=== PATIENT | female | born 1960 | race Caucasian/White ===

== ENCOUNTER 2016-11-22 15:42 | Emergency (ER) | payer OTHER ==
[~2016-11-22] VITALS: Ht 172.7 cm; Wt 65.8 kg
[~2016-11-22 15:42] MED LIST: AMOXICILLIN250 MG PO; AMOXICILLIN500 MG PO; ASPIRIN E.C.325 MG PO; ASPIRIN LOW DOS81 MG PO; ATIVAN1 MG PO; BENADRYL25 M1 PO; CIPRO500 MG PO; CLARITIN10 MG PO; CLINDAMYCIN HC300 MG PO; COLACE100 MG PO; Carafate1 GM PO; DIFLUCAN150 MG PO; DIPHENHYDRAMINE25 MG PO; DULCOLAX10 MG R; DULCOLAX10 MG RC; FLAGYL250 MG PO; FLAGYL500 MG PO; KEFLEX500 MG PO; LANSOPRAZOLE30 M1 PO; LIPITOR20 MG PO; MIRALAX POWDER17 G1 PO; MIRALAX17 GM/PACK PO; MOTRIN800 MG PO; NEXIUM40 MG PO; Peridex 473 ML473 ML PO; SENNA PLUS 50 M1 TA1 PO; TOBRADEX 0.1%-0.5 ML OPH; TRAMADOL HCL50 MG PO; TYLENOL325 M1 PO; TYLENOL500 MG PO; VIBRAMYCIN100 MG PO; VICODIN 5/500 505 MG PO; VOLTAREN25 MG PO; ZOCOR20 MG PO; ZOFRAN ODT4 MG SL; ZYRTEC10 MG PO
[2016-11-22] MEDS ORDERED: HYDROCODONE BIT1 T11 PO (18:38)
[2016-12-18] MEDS ORDERED: AMOXICILLIN250 MG PO (12:14)
[2016-12-18] MEDS ORDERED: CLINDAMYCIN HC300 MG PO (12:14)
[2016-12-18] MEDS ORDERED: PERIDEX118 ML MM (12:14)
[2016-12-18] MEDS ORDERED: DIFLUCAN150 MG PO (12:17)
== END 2016-11-22 18:44 | disposition home or self-care (01) ==
LOC: ED 15:42
DX: S22.31XA Fracture of one rib, right side, initial encounter for closed fracture (principal); S22.9XXA Fracture of bony thorax, part unspecified, initial encounter for closed fracture; Z88.0 Allergy status to penicillin; Z88.1 Allergy status to other antibiotic agents; Z88.8 Allergy status to other drugs, medicaments and biological substances; Z79.899 Other long term (current) drug therapy; Z79.82 Long term (current) use of aspirin; X58.XXXA Exposure to other specified factors, initial encounter; Y93.9 Activity, unspecified; Y92.9 Unspecified place or not applicable; Y99.9 Unspecified external cause status

== ENCOUNTER 2018-05-05 13:00 | Emergency (ER) | payer OTHER ==
[~2018-05-05] VITALS: Ht 172.7 cm; Wt 63.5 kg
[~2018-05-05 13:00] MED LIST changes: +HYDROCODONE BIT1 T11 PO; +PERIDEX118 ML MM
[2018-05-05] MEDS ORDERED: AMOXICILLIN500 M2 PO (13:38)
== END 2018-05-05 14:12 | disposition home or self-care (01) ==
LOC: ED 13:00
DX: J01.90 Acute sinusitis, unspecified (principal); Z88.6 Allergy status to analgesic agent; Z88.8 Allergy status to other drugs, medicaments and biological substances; Z88.1 Allergy status to other antibiotic agents; Z88.0 Allergy status to penicillin; Z79.899 Other long term (current) drug therapy; Z79.82 Long term (current) use of aspirin

== ENCOUNTER 2018-06-11 15:20 | Emergency (ER) | payer OTHER ==
[~2018-06-11 15:20] MED LIST changes: +AMOXICILLIN500 M2 PO
== END 2018-06-11 16:58 | disposition home or self-care (01) ==
LOC: ED 15:20
DX: S29.9XXA Unspecified injury of thorax, initial encounter (principal); Z88.5 Allergy status to narcotic agent; Z88.0 Allergy status to penicillin; Z88.2 Allergy status to sulfonamides; Z88.8 Allergy status to other drugs, medicaments and biological substances; Z88.1 Allergy status to other antibiotic agents; Z91.011 Allergy to milk products; Z79.899 Other long term (current) drug therapy; Z79.82 Long term (current) use of aspirin; X50.1XXA Overexertion from prolonged static or awkward postures, initial encounter; Y93.F9 Activity, other caregiving; Y92.89 Other specified places as the place of occurrence of the external cause; Y99.8 Other external cause status

== ENCOUNTER 2018-11-04 | Emergency (ER) | payer OTHER ==
[2018-11-04] MEDS ORDERED: AMOXICILLIN250 MG PO (13:54)
== END 2018-11-04 14:02 | disposition home or self-care (01) ==
DX: K04.7 Periapical abscess without sinus (principal); K02.9 Dental caries, unspecified; Z88.2 Allergy status to sulfonamides; Z88.0 Allergy status to penicillin; Z88.1 Allergy status to other antibiotic agents; Z88.6 Allergy status to analgesic agent; Z88.8 Allergy status to other drugs, medicaments and biological substances; Z79.899 Other long term (current) drug therapy; Z79.82 Long term (current) use of aspirin

== ENCOUNTER 2019-02-20 16:16 | Emergency (ER) | payer OTHER ==
[~2019-02-20] VITALS: Ht 172.7 cm; Wt 70.3 kg
--- NOTE | ~2019-02-20 | EKG ---
[place], [place] ELECTROCARDIOGRAM REPORT NAME: ROM KIMBLE UNIT #: [id number] ROOM: DOCTOR: EPIPHANY DRAFT REPORT BIRTHDATE: [birth year] [facility] Test Date: 2019-02-20 Test Time: 16:28:00 Pat Name: ROM IKMBLE Department: Room: Gender: F [employer] Worker: : 1960 Requested By: CRISTINA MCGOWAN DNP Order Number: [id number] Reading MD: Marquita Gordon MD Measurements Intervals Downing Rate: 75 P: 28 OR: 147 QRS: 1 QRSD: 84 T: 62 QT: 405 QTc: 453 Interpretive Statements Sinus rhythm Low voltage, precordial leads Abnormal R-wave progression, early transition Compared to ECG 02/13/2019 14:39:31 No significant changes Electronically Signed On 02-21-2019 12:33:51 PDT by Marquita Gordon MD CM:EKGRPT:ELECTROCARDIOGRAM REPORT [id number] CRISTINA MCGOWAN DNP EPIPHANY DRAFT REPORT CRISTINA MCGOWAN DNP
[2019-02-20 16:41] LABS: BASO % 0.3 % (0.0-1.0); EOS # 0.1 10*3/uL (0.0-0.4); EOS % 1.9 % (1.0-4.0); HEMOGLOBIN 11.5 g/dl (12.0-16.0); LYMPH # 2.5 10*3/uL (1.3-4.4); MEAN CELL VOLUME 87.8 fl (81.0-99.0); MEAN CORPUSCULAR HGB CONC 31.9 g/dl (33.0-37.0); MEAN PLATELET VOLUME 8.9 fl (9.6-12.3); MONO # 0.7 10*3/uL (0.1-1.0); MONO % 9.6 % (3.0-9.0); NEUT % 53.9 % (47.0-73.0); PLATELET COUNT AUTOMATED 417 10*3/uL (130-400); RED CELL DISTRI WIDTH 13.6 % (0-14.5); WHITE BLOOD COUNT 7.5 10*3/uL (4.8-10.8)
[2019-02-20 16:53] LABS: ACT PARTIAL THROMBO TIME 25.9 SECONDS (20.8-31.5)
[2019-02-20 16:57] LABS: ALBUMIN 3.8 gm/dl (3.1-4.5); ALKALINE PHOSPHATASE 125 U/L (45-117); BUN 6 mg/dl (7-24); CHLORIDE 106 mmol/L (98-107); CREATININE 0.56 mg/dL (0.55-1.02); POTASSIUM 3.9 mmol/L (3.5-5.1); SGOT/AST 14 IU/L (3-35); SGPT/ALT 20 U/L (12-78); SODIUM 138 mmol/L (136-145)
[2019-02-20 16:59] LABS: TROPONIN I < 0.015 ng/ml (<0.045)
[2019-02-20 17:15] LABS: BILIRUBIN NEGATIVE (NEGATIVE); BLOOD NEGATIVE (NEGATIVE); CLARITY CLEAR (CLEAR); COLOR YELLOW (YELLOW); GLUCOSE NEGATIVE (NEGATIVE); KETONE NEGATIVE (NEGATIVE); LEUKO ESTERASE NEGATIVE (NEGATIVE); NITRITE NEGATIVE (NEGATIVE); PH 5.5 (5.0-9.0); SPECIFIC GRAVITY <= 1.005 (1.005-1.030); UROBILINOGEN 0.2 E.U./dl (0.2-1.0)
[2019-02-20 17:24] LABS: URINE AMPHETAMINES < 1000 (1000ng/ml); URINE BARBITURATES < 200 (200ng/ml); URINE BENZODIAZEPINES < 200 (200ng/ml); URINE CANNABINOIDS (THC) < 50 (50ng/ml); URINE COCAINE < 300 (300ng/ml); URINE METHADONE < 300 (300ng/ml); URINE OPIATES < 300 (300ng/ml); URINE PHENCYCLIDINE < 25 (25ng/ml)
[2019-02-20 17:27] LABS: BACTERIA TRACE; EPITHELIAL CELLS 0-2; WBC 0-2 wbc/hpf (0-5)
== END 2019-02-20 18:49 | disposition home or self-care (01) ==
LOC: ED 16:16
PROVIDERS: Emergency Medicine; Nurse Practitioner Family
DX: M54.5 Low back pain (principal); M54.2 Cervicalgia; R06.02 Shortness of breath; K21.9 Gastro-esophageal reflux disease without esophagitis; G43.909 Migraine, unspecified, not intractable, without status migrainosus; Z79.82 Long term (current) use of aspirin; Z79.899 Other long term (current) drug therapy; Z88.5 Allergy status to narcotic agent; Z88.1 Allergy status to other antibiotic agents; Z88.8 Allergy status to other drugs, medicaments and biological substances; Z88.0 Allergy status to penicillin; V89.2XXD Person injured in unspecified motor-vehicle accident, traffic, subsequent encounter

== ENCOUNTER 2019-10-24 13:54 | Emergency (ER) | payer OTHER ==
[~2019-10-24] VITALS: Wt 72.6 kg
== END 2019-10-24 15:49 | disposition home or self-care (01) ==
LOC: ED 13:54
DX: M94.0 Chondrocostal junction syndrome [Tietze] (principal); E78.5 Hyperlipidemia, unspecified; K21.9 Gastro-esophageal reflux disease without esophagitis; I10 Essential (primary) hypertension; F17.200 Nicotine dependence, unspecified, uncomplicated; Z88.5 Allergy status to narcotic agent; Z88.2 Allergy status to sulfonamides; Z91.011 Allergy to milk products; Z88.8 Allergy status to other drugs, medicaments and biological substances; Z88.0 Allergy status to penicillin; Z88.1 Allergy status to other antibiotic agents; Z79.899 Other long term (current) drug therapy; Z79.82 Long term (current) use of aspirin; Z86.73 Personal history of transient ischemic attack (TIA), and cerebral infarction without residual deficits; X50.0XXA Overexertion from strenuous movement or load, initial encounter; Y93.89 Activity, other specified; Y92.89 Other specified places as the place of occurrence of the external cause; Y99.8 Other external cause status

== ENCOUNTER → 2019-12-16 | Outpatient (CLI) | payer OTHER ==
[2019-12-16 09:38] LABS: BASO % 0.2 % (0.0-1.0); EOS # 0.1 10*3/uL (0.0-0.4); EOS % 1.4 % (1.0-4.0); HEMATOCRIT 36.7 % (37.0-47.0); HEMOGLOBIN 11.3 g/dl (12.0-16.0); LYMPH # 3.5 10*3/uL (1.3-4.4); LYMPH % 41.2 % (27.0-41.0); MEAN CELL VOLUME 87.6 fl (81.0-99.0); MEAN CORPUSCULAR HGB CONC 30.8 g/dl (33.0-37.0); MEAN PLATELET VOLUME 9.4 fl (9.6-12.3); MONO # 0.9 10*3/uL (0.1-1.0); MONO % 11.1 % (3.0-9.0); NEUT # 3.8 10*3/uL (2.3-7.9); NEUT % 45.9 % (47.0-73.0); PLATELET COUNT AUTOMATED 378 10*3/uL (130-400); RED BLOOD COUNT 4.19 10*6/uL (4.10-5.10); RED CELL DISTRI WIDTH 13.5 % (0-14.5); WHITE BLOOD COUNT 8.4 10*3/uL (4.8-10.8)
[2019-12-16 10:08] LABS: ALBUMIN 3.5 gm/dl (3.1-4.5); BUN 12 mg/dl (7-24); CHLORIDE 108 mmol/L (98-107); CHOLESTEROL 136 mg/dL (<200); CREATININE 0.72 mg/dL (0.55-1.02); SGOT/AST 14 IU/L (3-35); SGPT/ALT 27 U/L (12-78); SODIUM 139 mmol/L (136-145)
[2019-12-16 10:18] LABS: ALKALINE PHOSPHATASE 105 U/L (45-117); HDL CHOLESTEROL 35 mg/dl (40-60); LDL CHOLESTEROL 51 mg/dL (9-159); TRIGLYCERIDES 250 mg/dl (<150); VLDL CHOLESTEROL 50 mg/dL (6-40)
== END | disposition home or self-care (01) ==
LOC: LAB 08:43
PROVIDERS: Nurse Practitioner Primary Care
DX: E78.5 Hyperlipidemia, unspecified (principal); E55.9 Vitamin D deficiency, unspecified

== ENCOUNTER 2020-09-25 11:10 | Emergency (ER) | payer OTHER ==
[~2020-09-25] VITALS: Ht 172.7 cm; Wt 81.6 kg
[2020-09-25] MEDS ORDERED: Peridex 473 ML473 ML PO (11:38)
[2020-09-25] MEDS ORDERED: AMOXICILLIN250 MG PO (11:38)
[2020-09-25] MEDS ORDERED: DIFLUCAN150 MG PO (11:43)
== END 2020-09-25 11:36 | disposition home or self-care (01) ==
LOC: ED 11:10
DX: K08.89 Other specified disorders of teeth and supporting structures (principal); Z88.2 Allergy status to sulfonamides; Z88.8 Allergy status to other drugs, medicaments and biological substances; Z88.5 Allergy status to narcotic agent; Z88.0 Allergy status to penicillin; Z79.82 Long term (current) use of aspirin; Z79.899 Other long term (current) drug therapy

== ENCOUNTER 2021-03-14 06:22 | Emergency (ER) | payer OTHER ==
[~2021-03-14] VITALS: Ht 167.6 cm; Wt 81.6 kg
[2021-03-14] MEDS ORDERED: DIFLUCAN150 MG PO (07:28)
[2021-03-14] MEDS ORDERED: AMOXICILLIN250 MG PO (07:28)
[2021-03-14] MEDS ORDERED: Peridex 473 ML473 ML PO (07:28)
== END 2021-03-14 07:46 | disposition home or self-care (01) ==
LOC: ED 06:22
DX: K08.89 Other specified disorders of teeth and supporting structures (principal); Z88.5 Allergy status to narcotic agent; Z88.2 Allergy status to sulfonamides; Z88.8 Allergy status to other drugs, medicaments and biological substances; Z88.0 Allergy status to penicillin; Z79.899 Other long term (current) drug therapy; Z79.2 Long term (current) use of antibiotics; Z79.82 Long term (current) use of aspirin

== ENCOUNTER 2021-05-22 16:22 | Emergency (ER) | payer OTHER ==
[~2021-05-22] VITALS: Ht 170.1 cm; Wt 81.6 kg
[2021-05-22 17:14] LABS: BILIRUBIN Negative (Negative); BLOOD Negative (Negative); CLARITY Clear (Clear); COLOR Yellow (Yellow); GLUCOSE Negative (Negative); KETONE Negative (Negative); LEUKO ESTERASE Negative (Negative); NITRITE Negative (Negative); PH 5.5 (4.5-8.0); SPECIFIC GRAVITY <= 1.005 (1.001-1.030); UROBILINOGEN 0.2 E.U./dl (0.0-1.0)
[2021-05-22 17:20] LABS: BACTERIA TRACE; RBC 0-2 rbc/hpf (0-2); WBC 0-2 wbc/hpf (0-5)
== END 2021-05-22 21:45 | disposition home or self-care (01) ==
LOC: ED 16:22
PROVIDERS: Nurse Practitioner Family
DX: S32.039A Unspecified fracture of third lumbar vertebra, initial encounter for closed fracture (principal); S32.049A Unspecified fracture of fourth lumbar vertebra, initial encounter for closed fracture; M62.830 Muscle spasm of back; Z88.5 Allergy status to narcotic agent; Z88.2 Allergy status to sulfonamides; Z91.011 Allergy to milk products; Z88.8 Allergy status to other drugs, medicaments and biological substances; Z88.0 Allergy status to penicillin; Z88.1 Allergy status to other antibiotic agents; Z79.2 Long term (current) use of antibiotics; Z79.899 Other long term (current) drug therapy; Z79.82 Long term (current) use of aspirin; X50.0XXA Overexertion from strenuous movement or load, initial encounter; Y93.89 Activity, other specified; Y92.89 Other specified places as the place of occurrence of the external cause; Y99.8 Other external cause status

== ENCOUNTER 2021-11-20 17:29 | Inpatient (IN) | payer OTHER ==
[~2021-11-20] VITALS: Ht 172.7 cm; Wt 81.0 kg
[~2021-11-20 17:29] MED LIST changes: -ATIVAN1 MG PO; +ATIVAN2 M1 PO; -LANSOPRAZOLE30 M1 PO; +LANSOPRAZOLE30 MG PO; +SENOKOT-S TABL1 EACH PO
[2021-11-20 17:40] VITALS: BP 141/77
== END 2021-11-20 21:46 | DRG 177 ==
LOC: ICCU 17:29
PROVIDERS: ADMIT Emergency Medicine; ATTEND Emergency Medicine
PROC: 5A09357 Assistance with Respiratory Ventilation, Less than 24 Consecutive Hours, Continuous Positive Airway Pressure (ICD-10-PCS; principal; 2021-11-20)
DX: U07.1 COVID-19 (principal); J12.82 Pneumonia due to coronavirus disease 2019; J96.01 Acute respiratory failure with hypoxia; I21.4 Non-ST elevation (NSTEMI) myocardial infarction; Z51.5 Encounter for palliative care; N17.0 Acute kidney failure with tubular necrosis